=== PATIENT | female | born 1980 | race Caucasian/White ===

== ENCOUNTER 2021-11-02 08:11 | Outpatient (CLI) | payer OTHER, SELFPAY | END 2021-11-02 08:12 | disposition home or self-care (01) | LOC: ANHSURGERY 08:15 | PROVIDERS: PCP Family Medicine; Visit Provider Surgery | DX: K42.9 Umbilical hernia without obstruction or gangrene (principal) | CPT/HCPCS: 36415; 86850; 86900; 86901 ==

== ENCOUNTER 2021-11-08 14:11 | Outpatient (CLI) | payer OTHER, SELFPAY ==
[2021-11-08 14:47] LABS: EDCOVIDSCREEN Positive (Negative)
== END 2021-11-08 14:12 | disposition home or self-care (01) ==
LOC: ANHSURGERY 14:12
PROVIDERS: PCP Family Medicine; Visit Provider Surgery
DX: U07.1 COVID-19 (principal); Z01.812 Encounter for preprocedural laboratory examination
CPT/HCPCS: 87426; C9803

== ENCOUNTER 2021-12-15 00:10 | Day surgery (SDC) | payer OTHER, SELFPAY ==
[2021-09-24 14:35] VITALS: BMI 22.6
--- NOTE | 2021-09-24 14:47 | PC.NURSE ---
Report to the Outpatient Waiting Room, entrance under the green pavilion located off [facility], at time 1130 on date 10/06/21. OR Time: 1330. - You and your visitor will be asked a series of questions to screen for COVID 19 for your protection. - A mask is required within the hospital. - Only one visitor is allowed at this time. Patient visitors will be guided where to wait when not with patient. Preoperative COVID Testing Requirements: No COVID Test needed if: (proof is required; if not received patient will have Rapid Test prior to entry) - Patient has received COVID Vaccine at least 14 days prior to procedure date or - Patient has positive COVID test result within last 90 days of surgery date. COVID Test needed if above criteria is not met If not COVID vaccinated a COVID test must be conducted within 72 hours of surgery and patient is asked to isolate self from time of testing until procedure. You will go to the [facility] for your COVID testing. The [facility] is located at the corner of [address] [facility]. You will only be called if COVID results are positive and your surgeon may reschedule your elective surgery date. Patients may have clear liquids (water, carbonated beverages, clear teas, apple juice) until 3 hours prior to surgery with a maximum of 20 ounces. - No food from midnight until time of surgery - Infants may have breast milk until 4 hours before surgery, formula 6 hours prior to surgery. - Children will be allowed to drink immediately following surgery. If applicable, please bring a bottle or sippy cup to assist with drinking. Juice, water, soda, and popsicles are readily available. For infants on formula, please bring formula the day of surgery. Pacifiers are allowed. Take the following medications with a SIP of water the morning of surgery: XANAX (IF NEEDED), ZOLOFT Medications to discontinue per physician: N/A Date to take last dose: N/A Please no make-up, nail comoran, hairspray, perfume, deodorant, or body powder the day of surgery. No jewelry (including any body piercings) or valuables the day of surgery, leave them at home. Please take a shower or bath the night before, or the morning of, surgery with an antibacterial soap. Wear comfortable, loose fitting clothing. Children are encouraged to wear pajamas. HIBICLENS SHOWER - Jewelry must be removed prior to entering the operating room. Rings and piercings that are not removed may be cut off. - The hospital will not accept responsibility for valuables. - Please leave all valuables, including medications, at home the day of surgery. If you are going home after surgery, a licensed tier truck driver must drive you home. - NO public transportation without another adult. - We recommend that an adult stay with you for 24 hours following discharge. - We also recommend that you do not drive, make important decision, drink alcoholic beverages, or take any drugs that were not prescribed by your health care provider for at least 24 hours after your discharge time. For Pediatric surgeries, we recommend two adults accompany the child home (only one inside the building at this time). Follow any additional instructions given to you from your surgeon. Telephone instructions given to HITESH SALAZAR and asked if any additional questions and then verbalized understanding. Patient advised to call surgeon office or pre surgery nurse liaison [phone] if any additional questions.
[2021-11-01 09:43] VITALS: BMI 22.6
--- NOTE | 2021-11-01 09:51 | PC.NURSE ---
Addendum entered by Melissa Barr RN 12/07/21 14:08: PT TO ARRIVE AT 0730 ON 12/15/21 FOR SURGERY AT 0930. mAY HAVE CLEAR LIQUIDS, UP TO 20 OUNCES, UNTIL 0630. Original Note: Report to the Outpatient Waiting Room, entrance under the green pavilion located off [facility], at time 10:00 on date 11/09/21. OR Time: 12:00. - You will be asked a series of questions to screen for COVID 19 for your protection. - A mask is required within the hospital. - No visitors are allowed at this time. Preoperative COVID Testing Requirements: No COVID Test needed if: (proof is required; if not received patient will have Rapid Test prior to entry) - Patient has received COVID Vaccine at least 14 days prior to procedure date or - Patient has positive COVID test result within last 90 days of surgery date. COVID Test needed if above criteria is not met Patients may have clear liquids (water, carbonated beverages, clear teas, apple juice) until 3 hours prior to surgery (9:00) with a maximum of 20 ounces. - No food from midnight until time of surgery Take the following medications with a SIP of water the morning of surgery: XANAX (IF NEEDED), ZOLOFT Medications to discontinue per physician: N/A Date to take last dose: N/A Please no make-up, nail slovak, hairspray, perfume, deodorant, or body powder the day of surgery. No jewelry (including any body piercings) or valuables the day of surgery, leave them at home. Please take a shower or bath the night before, or the morning of, surgery with an antibacterial soap. Wear comfortable, loose fitting clothing. HIBICLENS SHOWER - Jewelry must be removed prior to entering the operating room. Rings and piercings that are not removed may be cut off. - The hospital will not accept responsibility for valuables. - Please leave all valuables, including medications, at home the day of surgery. If you are going home after surgery, a licensed driver/sales workers must drive you home. - NO public transportation without another adult. - We recommend that an adult stay with you for 24 hours following discharge. - We also recommend that you do not drive, make important decision, drink alcoholic beverages, or take any drugs that were not prescribed by your health care provider for at least 24 hours after your discharge time. Follow any additional instructions given to you from your surgeon. Telephone instructions given to HITESH SALAZAR and asked if any additional questions and then verbalized understanding. Patient advised to call surgeon office or pre surgery nurse liaison [phone] if any additional questions.
--- NOTE | 2021-12-07 14:09 | PC.NURSE ---
Pt states no changes in medications since initial interview. Medical history updates made. Pt reports all Covid symptoms have resolved. New instructions reviewed with pt. Pt denies further questions at this time.
--- NOTE | 2021-12-14 14:38 | WPDANESEPPF ---
Anes - Initial Pre Proc Eval Procedure: Operation Date: 12/15/21 07:30 Proposed Procedures p Laparoscopic Umbilical Hernia Repair with Mesh, Davinci Assisted - Scooby Rowe DO Date/Time: 12/14/21 14:38 Surgeon: Scooby Rowe DO Pre Op Diagnosis: Umbilical Hernia Patient Data Age: 41 Gender: F Height: 1.75 m Weight: 69.4 kg Allergies Allergy/AdvReac Type Severity Reaction Status Date / Time Sulfa (Sulfonamide AdvReac Mild RASH Verified 12/15/21 06:27 Antibiotics) Home Medications Medication Instructions Recorded Confirmed Type alprazolam 0.25 mg tablet 0.25 mg PO QHS PRN 03/17/21 12/15/21 History sertraline 50 mg tablet 50 mg PO DAILY 03/17/21 12/15/21 History Patient hx anesthesia problems: none Family hx anesthesia problems: none Results Review: All pre-operative results and documents have been reviewed as part of the pre-operative evaluation. [facility] Past Medical History Medical History (Updated 12/14/21 @ 14:38 by Clark Jean MD) Anxiety Depression Surgical History Surgical History History of x2 History of D&C Family History Family History Father Brain tumor Grandparent Diabetes mellitus Hypertension Other Cancer Social History Social History Smoking status: Never smoker Alcohol intake: current Drinks per week: 6 Substance use: never Substance use type: does not use Living arrangements: with family Additional occupation/education comments: RN Gender identity (if verbalized by the patient): Female Spiritual care concerns: No Anes - Eval Final PreProcedure Day of Procedure 12/14/21 14:38 Patient weight: normal Heart: regular rate and rhythm Lungs: clear to auscultation Airway: Mallampati scale class 1 Neurological: alert and oriented Last oral intake: >/= 8 hours ASA classification: II Emergent: no Anesthetic plan: proceed Anesthesia type and monitoring: general ETT and standard monitoring Results Review: All pre-operative results and documents have been reviewed as part of the pre-operative evaluation. Informed Consent: The patient's anesthetic plan and its attendant risks and benefits were discussed with the patient/family/POA. Questions were solicited and answers provided to the satisfaction of the patient/family/POA.
[2021-12-15] VITALS (9 sets, daily range): BP systolic 103–132; BP diastolic 61–81; PULSE 65–76; RESP 14–16; TEMP 36.3–36.4; O2SAT 94–100
[2021-12-15] MEDS: ACETAMINOPHEN 500 MG TABLET 1000 MG PO (06:44)
[2021-12-15] MEDS: LACTATED RINGERS 1,000 ML 30 ML IV CONT ×2 (06:45→10:12)
[2021-12-15] MEDS: KETOROLAC 15 MG/ML VIAL (*BKC) IV PUSH (06:50)
--- NOTE | 2021-12-15 07:23 | WPDHPUPDATE1 ---
History and Physical Update Update Date/Time: 12/15/21 07:23 History and Physical has been reviewed, including an updated exam of the patient. There are NO changes in the patient's condition. Risks, benefits, and alternatives have been discussed and questions answered. Patient agrees to proceed with procedure.
--- NOTE | 2021-12-15 07:23 | PM.IMHP ---
H&P: HPI History of Present Illness Date/Time: 12/15/21 07:23 Chief Complaint: umbilical hernia Narrative: 41 yo presents for umbilical hernia repair. She reports no changes since last seen in office. Review of Systems Review of Systems: All systems reviewed & are unremarkable except as noted in HPI and below Constitutional: Constitutional: Denies chills, Denies fever(s), Denies headache(s) and Denies weight loss Eyes: Eyes: Denies change in vision ENT: Denies dizziness, Denies headache(s), Denies neck mass and Denies throat swelling Cardiovascular: Cardiovascular: Denies chest pain, Denies lightheadedness and Denies dyspnea Respiratory: Respiratory: Denies cough, Denies dyspnea and Denies wheezing Gastrointestinal: Gastrointestinal: Denies abdominal pain, Denies change in bowel habits, Denies nausea and Denies vomiting Genitourinary: Genitourinary: Denies hematuria and Denies dysuria Musculoskeletal: Musculoskeletal: Reports as per HPI Integumentary/Breasts: Skin/Breast: Reports as per HPI Neurologic: Denies dizziness and Denies headache(s) Allergic/Immunologic: Allergic/Immunologic: Denies throat swelling and Denies wheezing [facility] Past Medical History Medical History (Updated 12/14/21 @ 14:38 by Clark Jean MD) Anxiety Depression Surgical History Surgical History History of x2 History of D&C Family History Family History Father Brain tumor Grandparent Diabetes mellitus Hypertension Other Cancer Social History Social History Smoking status: Never smoker Alcohol intake: current Drinks per week: 6 Substance use: never Substance use type: does not use Living arrangements: with family Additional occupation/education comments: RN Gender identity (if verbalized by the patient): Female Spiritual care concerns: No Meds Home Medications and Allergies Home Medications Medication Instructions Recorded Confirmed Type alprazolam 0.25 mg tablet 0.25 mg PO QHS PRN 03/17/21 12/15/21 History sertraline 50 mg tablet 50 mg PO DAILY 03/17/21 12/15/21 History Allergies Allergy/AdvReac Type Severity Reaction Status Date / Time Sulfa (Sulfonamide AdvReac Mild RASH Verified 12/15/21 06:27 Antibiotics) Exam Const: General: no acute distress and alert Orientation/consciousness: patient oriented x3 HENMT: Head: normocephalic and atraumatic Ears: hearing grossly normal bilaterally General nose exam: Normal nares present Mouth: Yes Normal oral and palatal mucosa present Eyes: Periorbital: periorbital findings normal Sclera: sclerae normal EOM: EOMs intact bilaterally Neck: Neck: normal visual inspection, no lymphadenopathy and trachea midline Chest: Chest palpation & inspection: normal inspection of the chest Resp: Effort & Inspection: normal respiratory effort Auscultation: clear to auscultation bilaterally Cardio: Jugular venous distension: no JVD Rate: regular rate Rhythm: regular rhythm Heart sounds: S1 normal heart sound present and S2 normal heart sound present Peripheral pulses: Peripheral pulses 2+ throughout GI: Inspection: normal to inspection GI Palp: Yes Soft to palpation, No Tenderness to palpation present (GI), No Guarding due to palpation present (GI), Yes Hernia present (1cm umbilical hernia) and No Rebound tenderness present Percussion: Yes normal to percussion Auscultation: normal bowel sounds : General: Yes no CVA tenderness Back/Spine/Pelvis: Back: no CVA tenderness Neuro: General: patient oriented x3, no focal motor deficits and CN's II-XI intact bilaterally Cognition (Neuro): normal cognition Speech: normal speech Motor exam (neuro): 5/5 motor strength present throughout Extrem: General: capillary refill normal and no clubbing, cyanosis or robbie
[2021-12-15] MEDS: ceFAZolin 2 GM/D5W 50 ML 2 GM/50 ML BAG IVPB (07:29)
--- NOTE | 2021-12-15 08:51 | SUR.OPER ---
mesh ventralight st 4x6 exp 2023-07-03, [id number]/lot.
--- NOTE | 2021-12-15 10:00 | W.PM.PROC2 ---
Procedure Note - Detailed Date of Procedure 12/15/21 Pre-op Diagnosis Umbilical Hernia Post-op Diagnosis same Procedure Performed Laparoscopic Umbilical Hernia Repair with Mesh, da Jose Guadalupe assisted Surgeon Scooby Rowe, Anesthesia general and local (Exparel) Indications This is a 41-year-old woman who presented with a painful bulge at her umbilicus that she noticed several years ago. She has noticed some pain with activity. She was initially seen in April of 2021 and this was a fairly small umbilical hernia therefore I initially recommended an open umbilical hernia repair with possible mesh. She then saw a cosmetic surgeon for possible abdominoplasty and he requested that she have the hernia repaired laparoscopically to prevent incisions near the umbilicus. I then discussed this with the patient further and recommended robotic assisted laparoscopic umbilical hernia repair with mesh. Findings Laparoscopic umbilical hernia repair was performed. The patient was found to have a 1 cm umbilical hernia containing some preperitoneal fat. A robotic transabdominal preperitoneal approach was utilized. She did have some tethering of her peritoneum to the midline fascia in the infraumbilical region due to her prior C-sections. I was able to create a wide enough pocket and then was able to patch this back closed at the inferior midline once the peritoneal pocket was closed. A Ventralight ST 15 cm x 10 cm mesh was placed. This was secured to the abdominal wall using 3-0 Vicryl simple interrupted sutures at the 4 corners and then the peritoneal pocket was closed using 3-0 V lock running absorbable suture. No specimens were obtained for pathology. Description of Procedure Procedure as well as risks, benefits, and alternatives were discussed with the patient. Written consent was obtained and placed in chart prior to procedure. Patient was brought back to surgical suite. She was placed supine on operating table. Time-out was done to confirm patient and procedure. She was then intubated by the anesthesia department. A bump was placed under her left hip, and the bed was flexed slightly to extend the space between her costal margin and iliac crest. Her abdomen was prepped and draped in sterile fashion using chlorhexidine prep. A 5 millimeter incision was made in the left upper quadrant, and a 5 millimeter Optiview trocar was advanced through the abdominal layers under direct visualization. Once inside the abdominal cavity, carbon dioxide insufflation was used to create a pneumoperitoneum. Her abdomen was inspected. An 8 millimeter incision was made in the left lower quadrant, and an 8 millimeter robotic trocar was placed under direct visualization. Another 8 millimeter incision was made in the left lateral abdomen, and an 8 millimeter robotic trocar was placed under direct visualization. Exparel was infiltrated along the lateral abdominal lund to perform a transversus abdominis plane block bilaterally. The 5 millimeter port was removed, and another 8 mm port was replaced in this location. The robotic arms were brought up to the patient's bedside and secured to the ports. The camera and instruments were inserted, and I then moved over to the robotic console and took control of the camera and instruments. After careful thorough inspection of the abdominal cavity, I began my dissection at the hernia. A preperitoneal pocket was created at the left lateral abdomen using scissors with electrocautery. I extended the preperitoneal pocket wide enough to allow for mesh placement. There was some tethering of the peritoneum to the fascia in the lower midline which created a tear in the peritoneum in the lower midline. The rest of the pocket remained intact. I then measured the hernia size. The hernia measured 1 cm. The fascia was closed using an 0-Stratafix running suture in a vertical fashion. A Ventralight ST 15 cm x 10 cm mesh was then placed within the preperitone
[2021-12-15] MEDS: ONDANSETRON INJ 4 MG/2 ML VIAL IV PUSH (10:46)
[2021-12-15] MEDS: SCOPOLAMINE 1.5 MG PATCH TRANSDERM (11:47)
== END 2021-12-15 12:15 | disposition home or self-care (01) ==
PROVIDERS: PCP Family Medicine; Visit Provider Surgery
PROC: (CPT 49652; principal; 2021-12-15 07:30)
DX: K42.9 Umbilical hernia without obstruction or gangrene (principal); F41.8 Other specified anxiety disorders
CPT/HCPCS: 49652; S2900; 36415; 86850; 86900; 86901; A9270; C1781; C9290; J0330; J0690; J1100; J1885; J2250; J2270; J2405; J2704; J7030; J7120